=== PATIENT | female | born 1990 | race Caucasian/White ===

== ENCOUNTER → 2018-05-02 21:30 | Observation (INO) ==
[2018-05-02 20:20] LABS: Amphetamine Screen,Urine Negative ng/mL (Cutoff=1000); Barbiturate Screen,Urine Negative ng/mL (Cutoff=200); Benzodiazepines Screen,Urine Negative ng/mL (Cutoff=200); Cannabinoid Screen,Urine Negative ng/mL (Cutoff = 50); Cocaine Screen,Urine Negative ng/mL (Cutoff= 300); Opiate Screen,Urine Negative ng/mL (Cutoff=300); Phencyclidine Screen,Urine Negative ng/mL (Cutoff=25)
--- NOTE | 2018-05-02 21:24 | Discharge Summary ---
Date of Encounter: 05/02/18 Time of Encounter: 21:23 - Discharge Diagnosis (1) 38 weeks gestation of Priority: Primary Status: Acute Comments: Follow-up with Dr. Cordova as scheduled Labor parameters discussed Discharge home (2) Intact amniotic membranes during in third trimester Priority: Secondary Status: Acute Comments: Nitrazine negative No pooling or leaking - Discharge Medications Home Medications: Fiber Gummies 1 PO DAILY 02/17/18 [History] Tablet 1 tab PO DAILY 02/17/18 [History] Allergies/Adverse Reactions: 3 Allergy/AdvReac Type Severity Reaction Status Date / Time sulfamethoxazole Allergy Hives Verified 02/17/18 19:13 [From Bactrim] sumatriptan [From Imitrex] Allergy Hives Verified 02/17/18 19:13 trimethoprim [From Bactrim] Allergy Hives Verified 02/17/18 19:13 FISH Allergy Hives Uncoded 06/05/17 12:34 MUSHROOMS Allergy Hives Uncoded 06/05/17 12:34 Data Procedures and tests throughout hospitalization: Laboratory Tests 05/02/18 20:02 Urine Opiates Screen Negative Ur Barbiturates Screen Negative Ur Phencyclidine Scrn Negative Ur Amphetamines Screen Negative U Benzodiazepines Scrn Negative Urine Cocaine Screen Negative U Marijuana (THC) Screen Negative Ur Drug Screen Interp See Below Labs on day of discharge: Labs from last 24 hours 05/02/18 20:02 Urine Opiates Screen Negative Ur Barbiturates Screen Negative Ur Phencyclidine Scrn Negative Ur Amphetamines Screen Negative U Benzodiazepines Scrn Negative Urine Cocaine Screen Negative U Marijuana (THC) Screen Negative Ur Drug Screen Interp See Below Date of admission: 05/02/18 19:31 Discharging clinician: Kendra Marin Anticipated date of discharge: 05/02/18 - Patient Status Disposition: Home, Self-Care Condition: Good Functional capacity at discharge: independent ambulation Overall status at discharge: patient is progressing back to baseline - Discharge Instructions Follow Up With: Travis Cordova MD [Partnered Physician] - - Diet and Activity Activity: increase activity as tolerated Diet: regular diet 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 All testing was negative. Patient also reports feeling contractions every 6-8 minutes with some stronger than others. No cervical change after 1 hour of continuous monitoring. Patient is 1/thick/high. Discharge home with labor parameters Time Attestation: Total time spent providing and/or coordinating discharge services: Time Spent: Less than 30 minutes Exam - Constitutional General appearance IM: A&O X 3 - Respiratory Respiratory exam: Present: CTAB - Cardiovascular Cardiovascular exam IM: Present: RRR, +S1, +S2 - GI/Abdominal GI/Abdominal exam IM: normal bowel sounds, no peritoneal signs - Rectal Rectal exam: deferred - Uterine Tone: Firm - Extremities Exam Extremities exam IM: Present: full ROM, normal capillary refill, normal inspection, radial pulses palpable and symmetrical - Neurological Exam Neurological exam: alert, CN II-XII intact, normal gait, oriented X3, reflexes normal, no focal deficits, strengths equal and symetr throughout - VTE Reasons for not Prescribing Prophylaxis: Treatment not Indicated - Low risk for VTE
[~2018-05-02 21:30] MED LIST: Acetaminophen 325 MG TABLET PO ONE
== END | disposition home or self-care (01) ==
LOC: 1NENULAB
PROVIDERS: ADMIT Obstetrics & Gynecology; ATTEND Obstetrics & Gynecology

== ENCOUNTER 2018-05-12 09:44 | Inpatient (IN) ==
[2018-05-12] MEDS ORDERED: Oxytocin 20 units/ LR 1000 mL 20 UNIT/1,000 ML BAG IVC SCH ×2 (10:30→22:50)
[2018-05-12] MEDS ORDERED: Famotidine 20 MG/2 ML VIAL IVP PRN (10:54)
[2018-05-12] MEDS ORDERED: *HR* Nalbuphine 10 MG/ML AMPUL IVP PRN (10:54)
[2018-05-12] MEDS ORDERED: Naloxone 0.4 MG/ML INJ IVP PRN (10:54)
[2018-05-12] MEDS ORDERED: Ringers Solution, Lactated 1,000 ML IVC SCH (11:00)
[2018-05-12] MEDS ORDERED: Ondansetron 4 MG/2 ML VIAL IVP ONE (11:17)
[2018-05-12 11:24] LABS: Basophils % 0.3 %; Eosinophils # 0.1 K/mcL (0.0-0.6); Eosinophils % 0.7 %; Hematocrit 31.7 % (35.3-44.9); Immature Granulocytes % 0.6 % (0-4); Lymphocytes # 1.2 K/mcL (0.6-4.6); Lymphocytes % 16.9 %; Mean Corpuscular HGB Conc 31.5 g/dL (31.6-35.5); Mean Corpuscular Hemoglobin 22.6 pg (28.0-33.3); Mean Corpuscular Volume 71.6 fL (83.0-100.0); Monocytes # 0.5 K/mcL (0.0-1.3); Monocytes % 6.6 %; Neutrophils # 5.3 K/mcL (1.6-8.9); Platelet Count 173 K/mcL (140-400); Red Blood Count 4.43 M/mcL (3.82-4.97); Red Cell Distribution Width 14.7 % (11.5-14.5); Segmented Neutrophils % 74.9 %
[2018-05-12 12:24] LABS: Amphetamine Screen,Urine Negative ng/mL (Cutoff=1000); Barbiturate Screen,Urine Negative ng/mL (Cutoff=200); Benzodiazepines Screen,Urine Negative ng/mL (Cutoff=200); Cannabinoid Screen,Urine Negative ng/mL (Cutoff = 50); Cocaine Screen,Urine Negative ng/mL (Cutoff= 300); Opiate Screen,Urine Negative ng/mL (Cutoff=300); Phencyclidine Screen,Urine Negative ng/mL (Cutoff=25)
--- NOTE | 2018-05-12 15:24 | Anesthesia Evaluation PreOp ---
Date of Encounter: 05/12/18 Time of Encounter: 15:22 - Past History Planned Operation: jordon Cardiac History: Denies any Significant Hx Pulmonary History: Denies Any Significant HX PLASTER HELPER History: Denies Any Significant HX Other Medical History: Other (occasional heartburn) Anesthesia History: No Prior Anesthetic Complications, Past Anesthesia : Yes (39 plus 1, ) Alcohol Use: none Drug use: none Medications and Allergies Fiber Gummies 1 tab PO DAILY 02/17/18 [History] Tablet 1 tab PO DAILY 02/17/18 [History] Calcium Carbonate [Antacid] 1 tab PO DAILY 05/12/18 [History] Cyanocobalamin (Vitamin B-12) [Vitamin B12] 1 tab PO PRN PRN 05/12/18 [History] 3 Allergy/AdvReac Type Severity Reaction Status Date / Time sulfamethoxazole Allergy Hives Verified 02/17/18 19:13 [From Bactrim] sumatriptan [From Imitrex] Allergy Hives Verified 02/17/18 19:13 trimethoprim [From Bactrim] Allergy Hives Verified 02/17/18 19:13 FISH Allergy Hives Uncoded 06/05/17 12:34 MUSHROOMS Allergy Hives Uncoded 06/05/17 12:34 Anesthesia Results - Labs 05/12/18 10:54 Anesthesia Exam O2 Sat Height 1.6 m Weight 87.6 kg Height: 63 Weight: 87 - HEENT Pupil (Motor): Pupils equal Mallampati: II Teeth: Normal Oral Opening: Greater than 3 - PLASTER HELPER LOC: Oriented PLASTER HELPER Motor: Normal RUE, Normal LUE, Normal RLE, Normal LLE, Normal Face PLASTER HELPER Sensory: Normal: RUE, LUE, RLE, LLE, Face - Cardiac Rhythm: Regular Murmur: None JVD: No Carotid Bruit: No - Pulmonary Breath Sounds: bilateral Clear Respiratory Effort: Symmetrical Anesthesia Assess/Plan ASA Score: 2 Modified [place] Scale for Level of Consciousness: Cooperative, oriented, and tranquil Anesthetic Plan: Regional Autologous Blood: No Monitoring Plan: Standard Monitors Recovery Plan: PACU
--- NOTE | 2018-05-12 15:49 | OB/GYN Progress Note ---
Date of Encounter: 05/12/18 Time of Encounter: 15:47 - Assessment and Plan (1) 39 weeks gestation of Current Visit: Yes Status: Acute (2) Encounter for elective induction of labor Current Visit: Yes Status: Acute Subjective - Subjective Principal diagnosis: term induction Interval history: 27-year-old multiparous patient presented for induction of labor at term. Sterile vaginal exam 2/50% and -3 station. Patient is been on Pitocin. Garrett catheter placed today without difficulty. heart rate 130s with accelerations. Contractions irregular. Antepartum ROS: movement normal Objective - Vital Signs Vital Signs: Intake and Output 05/11/18 05/12/18 05/12/18 23:59 07:59 15:59 Other: Weight 87.6 kg Patient Weight 05/12/18 23:59 Weight 87.6 kg - Exam FHR: category 1, category 2 Abdomen: Present: normal appearance Uterus: Present: normal Cervical dilation: 2 Cervix effacement: 50 station: -3 - Labs Labs: Abnormal lab results Hgb 10.0 g/dL (11.5-15.4) L 05/12/18 10:54 Hct 31.7 % (35.3-44.9) L 05/12/18 10:54 MCV 71.6 fL (83.0-100.0) L 05/12/18 10:54 MCH 22.6 pg (28.0-33.3) L 05/12/18 10:54 MCHC 31.5 g/dL (31.6-35.5) L 05/12/18 10:54 RDW 14.7 % (11.5-14.5) H 05/12/18 10:54
[2018-05-12] MEDS ORDERED: Ondansetron 4 MG/2 ML VIAL IVP PRN (18:37)
[2018-05-12] MEDS ORDERED: *HR* FentaNYL (PF) 100 MCG/2 ML VIAL EP ONE (19:25)
[2018-05-12] MEDS ORDERED: Bupivacaine-MPF 0.25% 10 ML VIAL EP ONE (19:25)
[2018-05-12] MEDS ORDERED: EPHEDrine 50 MG/ML VIAL IVP PRN (19:25)
[2018-05-12] MEDS ORDERED: Lidocaine -MPF 1% 5 ML AMPUL ONE (19:28)
[2018-05-12] MEDS ORDERED: Epidural Premix (fent/bupiv) 110 ML EP SCH (19:30)
[2018-05-12] MEDS ORDERED: Epidural Premix (fent/bupiv) 110 ML EP ONE (19:31)
--- NOTE | 2018-05-12 19:57 | Anesthesia Procedures ---
Date of Encounter: 05/12/18 Time of Encounter: 19:35 (Completed procedure @ 2001) Procedures: Anesthesia - Epidural/Spinal Patient ID/Chart reviewed: Yes Patient examined: Yes OB Eval: Contractions: Non-stressed pattern Consent Obtained: Yes Supplemental Oxygen: None/Room Air Site Prep: Aseptic Technique, 0.5% Chlorhexidine/Alcohol Patient position: upright Local Anesthetic: Lidocaine 1% Amount of Local Anesthetic used: 3 Touhy Needle Gauge: 18 Touhy Needle Depth (cm): 5 Catheter Depth at Skin (cm): 12 Test Dose (1.5% Lido + Epi): Volume given (mls): 3 Test Dose Result: Negative Loading Dose: 0.25% Marcaine (mls): 5 Loading Dose: Fentanyl (mcg): 100 Loading Dose Administered: Thru Touhy Needle Infusion Med: 0.125% Bupivacaine w/ 2 mcg/ml Fentanyl Infusion Rate (mls/hr): [address]: Tegaderm Interspace Used: L3-L4 Loss of Resistance (KULDEEP): Yes Blood: No CSF: No Paresthesia: No
--- NOTE | 2018-05-12 22:24 | OB/GYN Procedure Note ---
Delivery - Delivery Date: 05/12/18 Provider: Travis Cordova Intrapartum events: none Delivery induction: oxytocin, richards Delivery augmentation: rupture of membranes, pitocin Delivery monitor: external FHT, external uterine Anesthesia: epidural Quantitated Blood Loss: 200 - Infant (s) A Infant Delivery Date: 05/12/18 Infant Delivery Time: 22:10 Presentation: vertex Position: OA Route of delivery: Gender: Male Viability: Viable Pounds: 8 Ounces: 5 Weight Gram: 3.765 kg at 1 minute: 8 at 5 mins: 9 Placenta: spontaneous Cord: nuchal cord - Repair Episiotomy: none Laceration Description: None - Complications Delivery complications: none - Disposition Mom disposition: stable in LDR [place] disposition: stable in LDR - Comments Comments: Patient progressed complete and pushing and had a spontaneous vaginal delivery of a male infant over an intact perineum. 's head was on the perineum easily. It was a cord around the neck 1 which is easily reduced. The rest the infant was then delivered with 1 push. cried medially upon delivery. The cord was then clamped cut. The was in past nurse in attendance. Cord bloods obtained. Placenta was delivered spontaneously and intact. There are no cervical vaginal periurethral or perineal lacerations noted. Patient delivered a male infant weight was 3765 g which is 8 lbs. 5 oz. with Apgars 81 minute 9 at 5 minutes assessment blood loss is 200 mL
[2018-05-12] MEDS ORDERED: Measles/Mumps/Rubella Vacc 0.5 ML VIAL SQ PRN (22:50)
[2018-05-13] MEDS: Acetaminophen 325 MG TABLET PO PRN ×2 (02:02→07:41)
[2018-05-13] MEDS: Ibuprofen 600 MG TABLET PO PRN ×2 (04:06→15:52)
[2018-05-13 04:34] LABS: Basophils % 0.2 %; Eosinophils # 0.1 K/mcL (0.0-0.6); Eosinophils % 0.5 %; Hematocrit 30.3 % (35.3-44.9); Hemoglobin 9.3 g/dL (11.5-15.4); Immature Granulocytes % 0.4 % (0-4); Lymphocytes # 1.6 K/mcL (0.6-4.6); Lymphocytes % 17.7 %; Mean Corpuscular HGB Conc 30.7 g/dL (31.6-35.5); Mean Corpuscular Hemoglobin 22.3 pg (28.0-33.3); Mean Corpuscular Volume 72.7 fL (83.0-100.0); Mean Platelet Volume 10.1 fL (9.4-12.4); Monocytes # 0.8 K/mcL (0.0-1.3); Monocytes % 8.9 %; Neutrophils # 6.6 K/mcL (1.6-8.9); Platelet Count 162 K/mcL (140-400); Red Blood Count 4.17 M/mcL (3.82-4.97); Red Cell Distribution Width 14.6 % (11.5-14.5); Segmented Neutrophils % 72.3 %
[2018-05-13] MEDS ORDERED: Prenatal Vit/FA 1 EACH TABLET PO SCH (09:00)
--- NOTE | 2018-05-13 09:45 | Discharge Summary ---
Date of Encounter: 05/13/18 Time of Encounter: 09:48 - Discharge Diagnosis (1) Status post normal delivery Priority: Primary Status: Acute Comments: Pt doing well s/p . Doing well. Had wanted BPS, but desires to hold off secondary to can't be done until late in day. - Discharge Medications Prescriptions: Ibuprofen [Motrin] 600 mg PO Q6HR PRN #40 tablet PRN Reason: Cramping Home Medications: Fiber Gummies 1 tab PO DAILY 02/17/18 [History] Tablet 1 tab PO DAILY 02/17/18 [History] Calcium Carbonate [Antacid] 1 tab PO DAILY 05/12/18 [History] Cyanocobalamin (Vitamin B-12) [Vitamin B12] 1 tab PO PRN PRN 05/12/18 [History] Ibuprofen [Motrin] 600 mg PO Q6HR PRN #40 tablet 05/13/18 [Rx] Allergies/Adverse Reactions: 3 Allergy/AdvReac Type Severity Reaction Status Date / Time sulfamethoxazole Allergy Hives Verified 02/17/18 19:13 [From Bactrim] sumatriptan [From Imitrex] Allergy Hives Verified 02/17/18 19:13 trimethoprim [From Bactrim] Allergy Hives Verified 02/17/18 19:13 FISH Allergy Hives Uncoded 06/05/17 12:34 MUSHROOMS Allergy Hives Uncoded 06/05/17 12:34 Data Procedures and tests throughout hospitalization: Laboratory Tests 05/12/18 05/12/18 05/12/18 10:54 10:58 11:45 WBC 7.1 RBC 4.43 Hgb 10.0 L Hct 31.7 L MCV 71.6 L MCH 22.6 L MCHC 31.5 L RDW 14.7 H Plt Count 173 MPV 10.0 Immature Gran % 0.6 Seg Neutrophils % 74.9 Lymphocytes % 16.9 Monocytes % 6.6 Eosinophils % 0.7 Basophils % 0.3 Neutrophils # 5.3 Lymphocytes # 1.2 Monocytes # 0.5 Eosinophils # 0.1 Basophils # 0.0 Urine Opiates Screen Negative Ur Barbiturates Screen Negative Ur Phencyclidine Scrn Negative Ur Amphetamines Screen Negative U Benzodiazepines Scrn Negative Urine Cocaine Screen Negative U Marijuana (THC) Screen Negative Ur Drug Screen Interp See Below Hep Bs Antigen Nonreactive 05/13/18 04:12 WBC 9.1 RBC 4.17 Hgb 9.3 L Hct 30.3 L MCV 72.7 L MCH 22.3 L MCHC 30.7 L RDW 14.6 H Plt Count 162 MPV 10.1 Immature Gran % 0.4 Seg Neutrophils % 72.3 Lymphocytes % 17.7 Monocytes % 8.9 Eosinophils % 0.5 Basophils % 0.2 Neutrophils # 6.6 Lymphocytes # 1.6 Monocytes # 0.8 Eosinophils # 0.1 Basophils # 0.0 Urine Opiates Screen Ur Barbiturates Screen Ur Phencyclidine Scrn Ur Amphetamines Screen U Benzodiazepines Scrn Urine Cocaine Screen U Marijuana (THC) Screen Ur Drug Screen Interp Hep Bs Antigen Labs on day of discharge: Labs from last 24 hours 05/13/18 05/12/18 05/12/18 04:12 11:45 10:58 WBC 9.1 RBC 4.17 Hgb 9.3 L Hct 30.3 L MCV 72.7 L MCH 22.3 L MCHC 30.7 L RDW 14.6 H Plt Count 162 MPV 10.1 Immature Gran % 0.4 Seg Neutrophils % 72.3 Lymphocytes % 17.7 Monocytes % 8.9 Eosinophils % 0.5 Basophils % 0.2 Neutrophils # 6.6 Lymphocytes # 1.6 Monocytes # 0.8 Eosinophils # 0.1 Basophils # 0.0 Urine Opiates Screen Negative Ur Barbiturates Screen Negative Ur Phencyclidine Scrn Negative Ur Amphetamines Screen Negative U Benzodiazepines Scrn Negative Urine Cocaine Screen Negative U Marijuana (THC) Screen Negative Ur Drug Screen Interp See Below Hep Bs Antigen Nonreactive 05/12/18 10:54 WBC 7.1 RBC 4.43 Hgb 10.0 L Hct 31.7 L MCV 71.6 L MCH 22.6 L MCHC 31.5 L RDW 14.7 H Plt Count 173 MPV 10.0 Immature Gran % 0.6 Seg Neutrophils % 74.9 Lymphocytes % 16.9 Monocytes % 6.6 Eosinophils % 0.7 Basophils % 0.3 Neutrophils # 5.3 Lymphocytes # 1.2 Monocytes # 0.5 Eosinophils # 0.1 Basophils # 0.0 Urine Opiates Screen Ur Barbiturates Screen Ur Phencyclidine Scrn Ur Amphetamines Screen U Benzodiazepines Scrn Urine Cocaine Screen U Marijuana (THC) Screen Ur Drug Screen Interp Hep Bs Antigen - Impressions Pt doing well s/p . Appropriate pain and lochia. 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 Time Attestation: Total time spent providing and/or coordinating discharge services: Exam - Constitutional Vitals: Temp Pulse Resp BP Pulse Ox 97.9 F 62 16 102/64 99 05/13/18 07:53 05/13/18 07:53 05/13/18 07:53 05/13/18 07:53 05/13/18 07:53 General appearance IM: A&O X 3 - Respiratory Respiratory exam: Present: CTAB - Cardiovascular Cardiovascular exam IM: Present: RRR - GI/Abdominal GI/Abdominal exam IM: normal bowel sounds - Uterus Position: 2 Fingers Below Umbilicus - Extremities Exam Extremities exam IM: Present: full ROM - Neurological Exam Neurological exam: oriented X3 - VTE Reasons for not Prescribing Prophylaxis: Treatment not Indicated - Low risk for VTE
[2018-05-13 21:25] VITALS: BP 125/88
== END 2018-05-14 00:40 | disposition home or self-care (01) | DRG 560 ==
LOC: 1NENULAB 09:44 → 1NENUOBS 05-13 01:18
PROVIDERS: ADMIT Obstetrics & Gynecology; ATTEND Obstetrics & Gynecology